=== PATIENT | male | born 1970 | race Hispanic/Latino ===

== ENCOUNTER 2019-04-29 20:16 | Emergency (ER) | payer SELFPAY ==
[2019-04-29] MEDS ORDERED: KETOROLAC 30 MG/ML INJ ONE (21:33)
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
[2019-04-29 23:47] VITALS: TEMP 99.4
[2019-04-29 23:48] VITALS: O2SAT 97
[2019-04-29 23:50] VITALS: BP 120/86
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
== END 2019-04-29 23:28 | disposition home or self-care (01) ==
LOC: ER 20:16
DX: S00.93XA Contusion of unspecified part of head, initial encounter (principal); V29.88XA Motorcycle rider (driver) (passenger) injured in other specified transport accidents, initial encounter; Y93.89 Activity, other specified; Y92.410 Unspecified street and highway as the place of occurrence of the external cause
CPT/HCPCS: 70450; 71045; 72125; 96372; 99284